=== PATIENT | male | born 1965 ===

== ENCOUNTER 2017-06-23 13:52 | Emergency (ER) | payer OTHER ==
[2017-06-23 13:57] VITALS: BMI 29.0
[2017-06-23 14:00] VITALS: BP 141/92; PULSE 104; RESP 18; TEMP 98.4; O2SAT 97
--- NOTE | 2017-06-23 14:41 | C.PDOC ---
History Of Present Illness Pt c/o runny nose. Time Seen by Provider: 06/23/17 14:24 Chief Complaint (Nursing): ENT Problem History Per: Patient Onset/Duration Of Symptoms: Days (2 weeks) Current Symptoms Are (Timing): Still Present Associated Symptoms: Nasal Congestion, Other (Sneezing) Severity: Moderate Additional History Per: Prior Records Past Medical History Reviewed: Historical Data, Nursing Documentation, Vital Signs Vital Signs: Last Vital Signs Temp 98.4 F 06/23/17 13:56 Pulse 104 H 06/23/17 13:56 Resp 18 06/23/17 13:56 BP 141/92 H 06/23/17 13:56 Pulse Ox 97 06/23/17 13:56 - Medical History PMH: CAD (?), Hypercholesterolemia, Hyperlipidemia Family History: States: Unknown Family Hx - Social History Hx Tobacco Use: Yes Hx Alcohol Use: Yes (occassionally) Hx Substance Use: No - Immunization History Hx Tetanus Toxoid Vaccination: No Hx Influenza Vaccination: No Hx Pneumococcal Vaccination: No Review Of Systems Except As Marked, All Systems Reviewed And Found Negative. Constitutional: Negative for: Fever, Weakness ENT: Positive for: Nose Congestion. Negative for: Throat Pain Cardiovascular: Negative for: Chest Pain Respiratory: Negative for: Cough, Shortness of Breath, Hemoptysis Gastrointestinal: Negative for: Vomiting, Abdominal Pain Musculoskeletal: Negative for: Neck Pain, Back Pain, Leg Pain Skin: Negative for: Rash Neurological: Negative for: Weakness, Numbness, Seizures, Altered Mental Status Physical Exam - Physical Exam Appears: Non-toxic, No Acute Distress Skin: Normal Color, Warm, Dry, No Rash Head: Atraumatic, Normacephalic Eye(s): bilateral: Normal Inspection, PERRL, EOMI Throat: Normal Neck: Normal ROM, Supple Cardiovascular: Rhythm Regular Respiratory: Normal Breath Sounds, No Accessory Muscle Use Gastrointestinal/Abdominal: Soft, No Tenderness Extremity: Normal ROM, No Pedal Edema, No Calf Tenderness Neurological/Psych: Oriented x3, Normal Speech, Normal Motor, Normal Sensation ED Course And Treatment O2 Sat by Pulse Oximetry: 97 Pulse Ox Interpretation: Normal Disposition Counseled Patient/Family Regarding: Diagnosis, Need For Followup, Rx Given - Disposition Referrals: [facility] [Outside] Disposition: HOME/ ROUTINE Disposition Time: 14:40 Condition: STABLE Additional Instructions: Follow up in the clinic for further evaluation and treatment. Return to the ER if you develop shortness of breath, worsening of symptoms or if you have any other concerns. Prescriptions: Fluticasone Nasal [Flonase] 2 spr NS DAILY #1 bottle Loratadine [Claritin] 10 mg PO DAILY #30 tab Instructions: Cold Symptoms (ED) Print Language: [email or web address] - Clinical Impression Clinical Impression: Nasal congestion
== END 2017-06-23 14:45 | disposition home or self-care (01) ==
LOC: C.ER 13:52
DX: R09.81 Nasal congestion (principal)